=== PATIENT | female | born 1965 | race Caucasian/White ===

== ENCOUNTER 2016-11-03 06:29 | Observation (INO) | payer OTHER ==
[2016-11-03] VITALS (10 sets, daily range): BP systolic 99–115; BP diastolic 58–74
[~2016-11-03] VITALS: Ht 177.8 cm; Wt 73.0 kg
[~2016-11-03 06:29] MED LIST: CETI10TA22 PO; LEVO50TA PO; SULF1TAB24 PO
[2016-11-03] MEDS ORDERED: LIDOCAINE 1% 1 ML SYRINGE. ID PRN (07:00)
[2016-11-03] MEDS ORDERED: HYDROmorphone 2 MG/ML VIAL IV PRN (07:00)
[2016-11-03] MEDS ORDERED: ONDANSETRON PF 4 MG/2 ML VIAL. IV PRN ×2 (07:00→10:15)
[2016-11-03] MEDS ORDERED: MORPHINE SULFATE 2 MG/ML DISP.SYRIN. IV PRN (07:00)
[2016-11-03] MEDS ORDERED: IV RINGERS,LACTATED 1000ML 1,000 ML IV SCH (07:00)
[2016-11-03] MEDS ORDERED: PROCHLORPERAZINE 10 MG/2 ML VIAL. IV PRN ×2 (07:00→10:15)
[2016-11-03] MEDS ORDERED: fentaNYL PF VIAL 100 MCG/2 ML VIAL IV PRN (07:00)
[2016-11-03 07:10] LABS: NEG OBC UR NEG; POS OBC UR POS
[2016-11-03] MEDS ORDERED: SCOPOLAMINE 1.5MG PATCH. TD ONE (07:19)
[2016-11-03] MEDS ORDERED: SURGICEL HEMOSTAT 4X8 EACH. ONE (07:28)
[2016-11-03] MEDS ORDERED: LIDOCAINE 1%/EPI 1:100,000 20 ML VIAL. ONE (07:28)
[2016-11-03] MEDS ORDERED: ESTROGENS, CONJ VAGINAL CREAM 30GM TUBE. ONE (07:29)
[2016-11-03] MEDS ORDERED: ISOSULFAN BLUE 50 MG/5 ML VIAL. SQ ONE (07:29)
[2016-11-03] MEDS ORDERED: BUPIVACAINE-EPI 0.25%-1:200000 MPF 30 ML VIAL. ONE (07:29)
[2016-11-03] MEDS ORDERED: SCOPOLAMINE 1.5MG PATCH. TD SCH (07:30)
[2016-11-03] MEDS ORDERED: ROCURONIUM 50 MG/5 ML VIAL. ONE (07:35)
[2016-11-03] MEDS ORDERED: LIDOCAINE 2% PF Vial for OR 5 ML VIAL. ONE (07:35)
[2016-11-03] MEDS ORDERED: fentaNYL PF VIAL 100 MCG/2 ML VIAL ONE (07:35)
[2016-11-03] MEDS ORDERED: PROPOFOL 100 ML IV ONE (07:35)
[2016-11-03 07:36] LABS: BASO # 0.1 x10^3/uL (0.0-0.2); BASO % 1 % (0-3); EOS % 3 % (0-3); HEMATOCRIT 40.2 % (36.0-47.0); HEMOGLOBIN 13.2 g/dL (12.0-15.5); LYMPH # 1.8 x10^3/uL (1.0-4.8); LYMPH % 38 % (24-48); MEAN CORPUSCULAR HEMOGLOBIN 27 pg (25-35); MEAN CORPUSCULAR HGB CONC 33 g/dL (31-37); MEAN CORPUSCULAR VOLUME 82 fL (79-100); MONO % 9 % (0-9); NEUT % 49 % (31-73); PLATELET COUNT 283 x10^3/uL (140-400); RED BLOOD COUNT 4.87 x10^6/uL (3.50-5.40); RED CELL DISTRIBUTION WIDTH 14.6 % (11.5-14.5); WHITE BLOOD COUNT 4.8 x10^3/uL (4.0-11.0)
[2016-11-03] MEDS ORDERED: SUCCINYLCHOLINE 200 MG/10 ML VIAL. ONE (07:36)
[2016-11-03] MEDS ORDERED: MIDAZOLAM HCL/PF 2 MG/2 ML VIAL. ONE (07:55)
[2016-11-03] MEDS ORDERED: ONDANSETRON PF 4 MG/2 ML VIAL. ONE (08:31)
[2016-11-03] MEDS ORDERED: DEXAMETHASONE SOD PHOS 20 MG/5 ML VIAL. ONE (08:31)
[2016-11-03] MEDS ORDERED: FAMOTIDINE 20 MG/2 ML VIAL ONE (08:31)
[2016-11-03] MEDS ORDERED: SEVOFLURANE 31 TO 60 MINUTES. IH ONE (08:32)
[2016-11-03] MEDS ORDERED: PROPOFOL 50 ML IV ONE (08:48)
[2016-11-03] MEDS ORDERED: NEOSTIGMINE 10 MG/10 ML VIAL. ONE (09:11)
[2016-11-03] MEDS ORDERED: GLYCOPYRROLATE 1 MG/5 ML VIAL. ONE (09:11)
[2016-11-03] MEDS ORDERED: KETOROLAC 30 MG/ML INJ FOR OR. INJ ONE (09:54)
[2016-11-03] MEDS ORDERED: PHENYLEPHRINE in 0.9% NACL PF 1 MG/10 ML DISP.SYRIN. IV ONE (09:55)
--- NOTE | 2016-11-03 10:08 | PDOC ---
BRIEF OPERATIVE NOTE Date: Nov 03, 2016 Pre-Op Diagnosis 1. Fibroids 2. Menorrhagia Post-Op Diagnosis SAme Procedure Performed TLH & BSO via Da Stu Surgeon Dr. Adams Anesthesia Type: General Blood Loss 50 ml Specimens Obtained uterus, cervix, sandrine. fallopian tubes and ovaries Findings enlarged, fibroid uterus; nml fallopian tubes and ovaries sandrine. Complications none Additional Remarks pt. CHASITY Moise Jr, MD Nov 03, 2016 10:08
[2016-11-03] MEDS ORDERED: SIMETHICONE 80 MG TAB.CHEW PO PRN (10:15)
[2016-11-03] MEDS ORDERED: KETOROLAC TROMETHAMINE 30 MG/ML INJ. IV PRN (10:15)
[2016-11-03] MEDS ORDERED: diphenhydrAMINE 50 MG/ML VIAL IV PRN (10:15)
[2016-11-03] MEDS ORDERED: ZOLPIDEM 5 MG TABLET. PO PRN (10:15)
[2016-11-03] MEDS ORDERED: DEXTROSE 50% 25 GM / 50ML DISP.SYRIN. IV PRN (10:15)
[2016-11-03] MEDS ORDERED: diphenhydrAMINE HCL 25 MG CAPSULE PO PRN (10:15)
[2016-11-03] MEDS ORDERED: CALCIUM CARBONATE 500 MG TAB.CHEW PO PRN (10:15)
[2016-11-03] MEDS ORDERED: 0.9 % SODIUM CHLORIDE 10 ML DISP.SYRIN. IV PRN (10:15)
[2016-11-03] MEDS: fentaNYL PF VIAL 100 MCG/2 ML VIAL IV PRN ×4 (10:32→11:00)
[2016-11-03] MEDS ORDERED: fentaNYL PF VIAL 100 MCG/2 ML VIAL IM PRN (12:45)
[2016-11-03] MEDS: SMZ/TMP 800/160MG TABLET. PO SCH (13:00)
[2016-11-03] MEDS: oxyCODONE/APAP 5/325 1 TAB TABLET PO PRN (15:15)
[2016-11-03] MEDS: GABAPENTIN 300 MG CAPSULE. PO SCH ×2 (15:15→23:18)
[2016-11-04 03:00] VITALS: BP 105/70
[2016-11-04 04:30] LABS: BASO # 0.1 x10^3/uL (0.0-0.2); BASO % 1 % (0-3); EOS % 1 % (0-3); LYMPH # 2.3 x10^3/uL (1.0-4.8); LYMPH % 23 % (24-48); MEAN CORPUSCULAR HEMOGLOBIN 28 pg (25-35); MEAN CORPUSCULAR HGB CONC 33 g/dL (31-37); MEAN CORPUSCULAR VOLUME 83 fL (79-100); MONO % 8 % (0-9); NEUT % 68 % (31-73); PLATELET COUNT 227 x10^3/uL (140-400); RED BLOOD COUNT 3.62 x10^6/uL (3.50-5.40); RED CELL DISTRIBUTION WIDTH 14.5 % (11.5-14.5); WHITE BLOOD COUNT 10.2 x10^3/uL (4.0-11.0)
[2016-11-04 06:30] VITALS: BP 104/63
[2016-11-04] MEDS: oxyCODONE/APAP 5/325 1 TAB TABLET PO PRN ×2 (06:54→11:41)
[2016-11-04 08:20] VITALS: BP 104/67
[2016-11-04] MEDS: GABAPENTIN 300 MG CAPSULE. PO SCH (08:26)
[2016-11-04] MEDS: SMZ/TMP 800/160MG TABLET. PO SCH (08:27)
--- NOTE | 2016-11-04 13:03 | PDOC ---
SURGICAL PROGRESS NOTE Subjective Pt. feeling well. Pain controlled. Ambulating, voiding and tolerating regular diet. Positive flatus. Vital Signs Vital Signs Date Time Temp Pulse Resp B/P (MAP) Pulse Ox O2 Delivery O2 Flow Rate FiO2 11/04/16 11:41 18 Room Air 11/04/16 08:20 10.0 11/04/16 08:20 97.4 61 104/67 (79) 100 97.4 I&O Intake and Output 11/04/16 07:00 Intake Total 3200 ml Output Total 1940 ml Balance 1260 ml Intake Oral 800 ml IV Total 1400 ml Other 1000 ml Output Urine Total 1890 ml Estimated Blood Loss 50 ml PATIENT HAS A GONZALEZ: No General: Alert, Oriented X3, Cooperative HEENT: Atraumatic Lungs: Clear to auscultation Heart: Regular rate Abdomen: Normal bowel sounds, Soft, No tenderness, No masses Neuro: Normal gait Psych/Mental Status: Mental status NL Labs Laboratory Tests Test 11/03/16 06:45 11/04/16 04:25 White Blood Count 4.8 x10^3/uL (4.0-11.0) 10.2 x10^3/uL (4.0-11.0) Red Blood Count 4.87 x10^6/uL (3.50-5.40) 3.62 x10^6/uL (3.50-5.40) Hemoglobin 13.2 g/dL (12.0-15.5) 10.0 g/dL (12.0-15.5) Hematocrit 40.2 % (36.0-47.0) 30.0 % (36.0-47.0) Mean Corpuscular Volume 82 fL (79-100) 83 fL (79-100) Mean Corpuscular Hemoglobin 27 pg (25-35) 28 pg (25-35) Mean Corpuscular Hemoglobin Concent 33 g/dL (31-37) 33 g/dL (31-37) Red Cell Distribution Width 14.6 % (11.5-14.5) 14.5 % (11.5-14.5) Platelet Count 283 x10^3/uL (140-400) 227 x10^3/uL (140-400) Neutrophils (%) (Auto) 49 % (31-73) 68 % (31-73) Lymphocytes (%) (Auto) 38 % (24-48) 23 % (24-48) Monocytes (%) (Auto) 9 % (0-9) 8 % (0-9) Eosinophils (%) (Auto) 3 % (0-3) 1 % (0-3) Basophils (%) (Auto) 1 % (0-3) 1 % (0-3) Neutrophils # (Auto) 2.4 x10^3uL (1.8-7.7) 7.0 x10^3uL (1.8-7.7) Lymphocytes # (Auto) 1.8 x10^3/uL (1.0-4.8) 2.3 x10^3/uL (1.0-4.8) Monocytes # (Auto) 0.4 x10^3/uL (0.0-1.1) 0.8 x10^3/uL (0.0-1.1) Eosinophils # (Auto) 0.1 x10^3/uL (0.0-0.7) 0.1 x10^3/uL (0.0-0.7) Basophils # (Auto) 0.1 x10^3/uL (0.0-0.2) 0.1 x10^3/uL (0.0-0.2) Urine Test Negative (NEG) Laboratory Tests Test 11/04/16 04:25 White Blood Count 10.2 x10^3/uL (4.0-11.0) Red Blood Count 3.62 x10^6/uL (3.50-5.40) Hemoglobin 10.0 g/dL (12.0-15.5) Hematocrit 30.0 % (36.0-47.0) Mean Corpuscular Volume 83 fL (79-100) Mean Corpuscular Hemoglobin 28 pg (25-35) Mean Corpuscular Hemoglobin Concent 33 g/dL (31-37) Red Cell Distribution Width 14.5 % (11.5-14.5) Platelet Count 227 x10^3/uL (140-400) Neutrophils (%) (Auto) 68 % (31-73) Lymphocytes (%) (Auto) 23 % (24-48) Monocytes (%) (Auto) 8 % (0-9) Eosinophils (%) (Auto) 1 % (0-3) Basophils (%) (Auto) 1 % (0-3) Neutrophils # (Auto) 7.0 x10^3uL (1.8-7.7) Lymphocytes # (Auto) 2.3 x10^3/uL (1.0-4.8) Monocytes # (Auto) 0.8 x10^3/uL (0.0-1.1) Eosinophils # (Auto) 0.1 x10^3/uL (0.0-0.7) Basophils # (Auto) 0.1 x10^3/uL (0.0-0.2) Assessment/Plan A: POD#1 s/p TLH & BSO P: D/c home. Problems: CHASITY CHAUDHRY Jr, MD Nov 04, 2016 13:03
--- NOTE | 2016-11-04 13:04 | DISCH ---
DISCHARGE INSTRUCTIONS Condition on Discharge Condition on Discharge: Stable Activity After Discharge Activity Instructions for Disc: Activity as tolerated Lifting Instructions after Dis: No heavy lifting Driving Instructions after Dis: Do not drive today Diet after Discharge Diet after Discharge: Regular Contacting the [facility] after DC Call your doctor for: Concerns you may have Follow-Up Follow up with: Dr. Adams in 2 weeks. CHASITY ADAMS Jr, MD Nov 04, 2016 13:04
[2016-11-04] MEDS ORDERED: OXYC-323 PO (13:09)
[2016-11-04] MEDS ORDERED: IBUP-1060 PO (13:09)
[2016-11-04] MEDS ORDERED: DOCU-109 PO (13:09)
[2016-11-04 13:45] VITALS: BP 95/57
--- NOTE | 2016-11-07 08:40 | PATHOLOGY ---
PATHOLOGY REPORT * * * * * * * * FINAL DIAGNOSIS: Uterus and attached bilateral fallopian tubes and ovaries, hysterectomy with bilateral salpingo-oophorectomy: - Leiomyomas, uterine corpus, multiple, subserosal and intramural, the largest measuring 2.7 cm in greatest dimension. - Vascular ectasia and congestion of cervix. - Slightly disordered weakly proliferative endometrium. - Adenomyosis, uterine corpus, sub-basal, focal. - Congestion of bilateral fallopian tubes. - Cystic follicle of left ovary. COMMENT: There is no evidence of malignancy. (JPM/db; 11/05/2016) REPORT ELECTRONICALLY SIGNED BY: John Ortega M.D. DATE/TIME: 11/07/2016 08:40 * * * * * * * * GROSS PATHOLOGY: The specimen is received in formalin, labeled "Lucila Medina, uterus, cervix, bilateral tubes and ovaries". Received is a 9.3 x 6.3 x 3.8 intact uterus with attached cervix, bilateral fallopian tubes and ovaries, which weighs 127.9. The uterine serosa is reddish brown, smooth and glistening. There are two nodular fibroids on the superior aspect of the fundus and a larger single fibroid on the posterior aspect. The 0.9 cm slit-like cervical os is surrounded by pink linder, edematous ectocervical mucosa. The uterus is oriented using the peritoneal reflection and the anterior paracervical margin is inked black. The uterus weighs 109.8 g. The uterus is opened laterally to reveal a yellow guan, corrugated endocervical canal measuring 2.3 cm in length. The endometrial cavity is roughly triangular in shape measuring 2.6 cm in length and 4.3 cm in width. The endometrium is pink guan and granular in appearance and measures 0.1 cm in thickness. There are focal dark red blood clots adherent to the endometrium. Serial sectioning reveals a pink guan, trabeculated myometrium measuring up to 2.3 cm in thickness. There are multiple subserosal, submucosa, and intramural leiomyomata ranging from 0.4 up to 2.7 cm in maximum dimensions. The right adnexa consist of a fimbriated fallopian tube and attached ovary and weighs 8.1 g. The fallopian tube measures 8.2 cm in length and from 0.4 up to 0.7 cm in diameter. Sectioning through the fallopian tube reveals a pinpoint lumen and the fallopian tube appears otherwise grossly unremarkable. Sectioning through the ovary reveals a pink guan cut surface with a few small cortical cysts and acosta yellow corpora lutea measuring up to 0.4 cm in maximum dimensions. The ovary is otherwise essentially unremarkable. The left adnexa consist of a fimbriated fallopian tube and attached ovary and weighs 9.5 g. The fallopian tube measures 7.8 cm in length and from 0.4 up to 0.7 cm in diameter. Sectioning through the fallopian tube reveals a pinpoint lumen and the fallopian tube appears otherwise grossly unremarkable. Sectioning through the ovary reveals a pink guan cut surface with a few cortical cysts measuring from 0.4 up to 1.2 cm in maximum dimensions and filled with thin yellow fluid. The ovary is otherwise essentially unremarkable. Aviation Maintenance Instructor sections are submitted as follows: A1- Anterior and posterior cervix A2- Superior subserosal fibroid nodules A3- Posterior subserosal fibroid nodule A4- Anterior endomyometrium A5- Anterior endomyometrium with submucosal fibroid nodule A6- Posterior endomyometrium with intramural fibroid nodule A7- Aviation Maintenance Instructor sections from right adnexa A8- Aviation Maintenance Instructor sections from left adnexa (JPM; 11/03/16) INITIAL CPT CODE(S): A; 92123 Professional services performed [place] [facility] [place] [address] Technical services performed by [facility] at [address] [place] [address], [facility] [address] [address]. John Norris, fax: SPECIMEN(S) RECEIVED: A.Uterus, cervix, bilateral tubes and ovaries CLINICAL HISTORY: Menorrhagia, fibroids PATIENT: LUCILA MEDINA /AGE: 106/03/1965 (Age: 51) PATIENT #: [id number] ALT CASE #: SPECIMEN COLLECTION DATE: 11/03/2016 SPECIMEN RECEIVED DATE: 11/03/2016 [facility] - [address] [place] [address] - PHONE: [phone] * * * END OF REPORT * * *
--- NOTE | 2016-11-18 16:50 | PDOC4 ---
OPERATIVE NOTE: PreOp Dx: Fibroids Menorrhagia PostOp Dx: Same Procedure: TLH & BSO via [facility] Description: Pt. taken to surgery suite and placed in dorsolithotomy position. She was prepped and draped in normal fashion. Bi-valve speculum placed vaginally. Single tooth tenaculum placed on anterior lip of cervix. RODRI uterine manipulator placed. Single tooth tenaculum and speculum removed. Attention now placed on abdomen. Small transversion skin incision made with scalpel just below umbilicus. Veres needle placed through incision site to insuflate abdomen to 1.5 L CO2. Veres needle removed and 8 mm tocar placed. Camera was placed. Two additional incisions were made in Right and Left lower quadrant for 8 mm port sites. An accessory port site was placed in upper Left quadrant. The [facility] Stu robot was docked in normal fashion. I then proceeded to the debt and budget counselor. I utilized the vessel sealer and bipolar cautery for the procedure. The Right round ligament was coagulated and dissected. The Right infundibulo ligament was coagulated and dissected. THe Right broad ligament was coagulated and dissected, including the Right uterine artery. A bladder flap was created with blunt dissection and with aid from the vessel sealer. The same process took place with the Left adnexa. Colpotomy was performed with the spatula at the level of the cervical ring. The uterus, cervix, and bilateral fallopian tubes and ovaries were removed. The vaginal cuff was reapproximated with V- lock suture in running fashion. Suction irrigation was used to verify good hemostasis. The ureters were visualized and functioning normally. The robot was undocked and the trocars removed. The skin incision sites were reapproximated with 4-0 vicryl in subcutaneous manner. 0.25% Marcaine with epinephrine was injected at each incision site. Moist premarin vaginal packing was placed. Pt. tolerated procedure well. Sponge and needle count correct x 3. Pt. taken to PACU in stable condition. CHASITY CHAUDHRY Jr, MD Nov 18, 2016 16:50
== END 2016-11-04 14:00 | disposition home or self-care (01) ==
LOC: SURG 06:29 → 3 NORTH 10:25
PROVIDERS: ADMIT Obstetrics & Gynecology; ATTEND Obstetrics & Gynecology
DX: N92.0 Excessive and frequent menstruation with regular cycle (principal); D21.9 Benign neoplasm of connective and other soft tissue, unspecified
CPT/HCPCS: 36415; 58571; 81025; 85027; 86850; 86900; 86901; 88307; 96374; 96375; A4215; G0378; G0379; J0330; J0690; J0780; J1100; J1885; J2250; J2370; J2405; J2704; J2710; J3010; J3490; J7030; J7120; S0028; J2001; Q9968